=== PATIENT | female | born 1950 | race Caucasian/White ===

== ENCOUNTER 2021-05-25 10:21 | Outpatient (REF) | payer MEDICARE, SELFPAY | END 2021-05-25 10:22 | disposition home or self-care (01) | LOC: HO.WFDLDS 10:21 | PROVIDERS: PCP Pediatrics; Visit Provider Internal Medicine | DX: Z20.822 Contact with and (suspected) exposure to COVID-19 (principal) | CPT/HCPCS: C9803; U0003; U0005 ==